=== PATIENT | male | born 1985 | race Caucasian/White ===

== ENCOUNTER 2017-05-08 12:54 | Emergency (ER) | payer OTHER ==
[2017-05-08] MEDS ORDERED: ONDANSETRON 4 MG/2 ML VIAL ONE (13:40)
[2017-05-08] MEDS ORDERED: LORazepam 2 MG/ML INJ IVP ONE (13:46)
[2017-05-08] MEDS ORDERED: NS 1,000 ML IV ONE (13:46)
[2017-05-08] MEDS ORDERED: ONDANSETRON 4 MG/2 ML VIAL IVP ONE (14:01)
[2017-05-08 14:05] LABS: PLATELET COUNT 313 10^3/uL (150-400)
--- NOTE | 2017-05-08 14:15 | CPEKG ---
Heart Rate: 103 RR Interval: 583 P-R Interval: 172 QRSD Interval: 92 QT Interval: 348 QTC Interval: 456 P [place]: 79 QRS [place]: 62 T Wave [place]: 11 EKG Severity - BORDERLINE ECG - EKG Impression: SINUS TACHYCARDIA EKG Impression: BORDERLINE INFERIOR Q WAVES Electronically Signed By: Ofelia Huang 08-May-2017 23:03:18
[2017-05-08 14:29] LABS: CREATINE KINASE 102 IU/L (0-224)
--- NOTE | 2017-05-08 14:43 | EDPHY ---
H & P Smoking Status: Current some day smoker Time Seen by Provider: 05/08/17 13:34 HPI/ROS: CHIEF COMPLAINT: I feel lousy HISTORY OF PRESENT ILLNESS: 32-year-old male presents reporting that he woke this morning feeling terrible with shakiness, slow mentation, seems confused, and nauseous with vomiting. Patient reports drinking 10 whiskey drinks, 5 beers , taking an oxycontin 10 mg, smoking marijuana, and using methamphetamine last night. Patient denies any chest pain. Denies any shortness of breath. Does report that he feels like his heart is racing. Has been nauseous and vomited twice. Denies cocaine use. Patient uses OxyContin on an intermittent basis. Reports feeling otherwise well. No history of seizure. REVIEW OF SYSTEMS: Aside from elements discussed in the HPI, a comprehensive 10-point review of systems was reviewed and is negative. PAST MEDICAL HISTORY: Shoulder pain. Uses OxyContin pain control. SOCIAL HISTORY: Occasional cigarette smoker. Works in sales. VITAL SIGNS Reviewed by me. GENERAL: Well-developed, well-nourished, tachycardic. No respiratory distress. HEENT: Atraumatic. Eyes: Pupils 9 mm, minimally reactive, no nystagmus. EOMI. No icterus, no injection. Mouth: Slightly dry mucous membranes. No erythema or lesions. Neck: supple with no adenopathy. LUNGS: Clear to auscultation bilaterally, no wheezes, rhonchi or rales. CARDIAC: Regular tachycardia, no rubs murmurs or gallops. ABDOMEN: Soft, nontender, nondistended, bowel sounds normal. BACK: No CVA tenderness. EXTREMITIES: No trauma. No edema. Range of motion is normal throughout. NEURO: Alert and oriented, grossly nonfocal. SKIN: Warm and dry, no rash. PSYCHIATRIC: Normal mentation, no agitation. (Ofelia Huang) Constitutional: Initial Vital Signs Temperature (C) 36.3 C 05/08/17 12:58 Heart Rate 109 H 05/08/17 12:58 Respiratory Rate 20 05/08/17 12:58 Blood Pressure 170/104 H 05/08/17 12:58 O2 Sat (%) 94 05/08/17 12:58 O2 Delivery Mode Room Air Allergies/Adverse Reactions: No Known Allergies Allergy (Unverified 05/08/17 12:58) Home Medications: Medication Instructions Recorded Ondansetron Odt [Zofran Odt] 4 mg PO Q4PRN PRN #10 tab 05/08/17 Oxycontin 05/08/17 Medical Decision Making - Diagnostics EKG Interpretation: 12-LEAD EKG: Please see the full report in [facility]. My interpretation: Sinus tachycardia (Ofelia Huang) ED Course/Re-evaluation: 32-year-old male presenting with a sense of agitation, shakiness, tachycardia. He reports drinking a large quantity of alcohol last night, using methamphetamines, and taking oxycodone. Patient IV placed. He received normal saline. EKG demonstrates normal sinus rhythm. Troponin is negative. He received Ativan. He reports feeling improved. No vomiting here. Patient was advised to avoid a methamphetamines in the future. He was also cautioned regarding his excessive alcohol intake. He also does report that he uses opiates intermittently for shoulder pain, occasionally using opiates which are not prescribed for him. I have cautioned him regarding opiate addiction. ( Ofelia Huang) Differential Diagnosis: Differential diagnoses for the patient's symptom complex was considered including but not limited to substance abuse, alcohol withdrawal, anxiety, dehydration, electrolyte abnormality. (Ofelia Huang) - Data Points Laboratory Results: Laboratory Results 05/08/17 13:30 05/08/17 13:30 Medications Given: Discontinued Medications Sodium Chloride (Ns) 1,000 mls @ 0 mls/hr IV ONCE ONE; Wide Open PRN Reason: Protocol Stop: 05/08/17 13:47 Last Admin: 05/08/17 13:52 Dose: 1,000 mls Lorazepam (Ativan Injection) 1 mg IVP EDNOW ONE Stop: 05/08/17 13:47 Last Admin: 05/08/17 13:59 Dose: 1 mg Lorazepam (Ativan) 1 mg PO EDNOW ONE Stop: 05/08/17 15:43 Last Admin: 05/08/17 16:06 Dose: 1 mg Ondansetron HCl (Zofran) 4 mg IVP EDNOW ONE Stop: 05/08/17 14:02 Last Admin: 05/08/17 14:01 Dose: 4 mg Departure - Departure Disposition: Home, Routine, Self-Care Clinical Impression: Methamphetamine use, Opiate use disorder Condition: Good Instructions: Methamphetamine Abuse (ED) Additional Instructions: Do not use methamphetamine in the future. I am concerned regarding your alcohol use as well as your opiate use. Do not drink alcohol in excessive quantities. Do not use opiates for chronic pain issues. You been given a prescription for Zofran. You may use this as needed for any nausea. Referrals: NONE *PRIMARY CARE P,. [Primary Care Provider] - As per Instructions Prescriptions: Ondansetron Odt [Zofran Odt] 4 mg PO Q4PRN PRN #10 tab PRN Reason: Nausea
[2017-05-08 14:59] VITALS: PULSE 96
[2017-05-08] MEDS ORDERED: LORazepam 1 MG TAB PO ONE (15:42)
[2017-05-08 16:10] VITALS: BP 147/85; RESP 18; TEMP 98.4; O2SAT 97
== END 2017-05-08 16:09 | disposition home or self-care (01) ==
DX: F15.90 Other stimulant use, unspecified, uncomplicated (principal); F11.99 Opioid use, unspecified with unspecified opioid-induced disorder; F17.210 Nicotine dependence, cigarettes, uncomplicated; E86.9 Volume depletion, unspecified
CPT/HCPCS: 80305; 96374; J2060; J2405